=== PATIENT | male | born 1960 | race Caucasian/White ===

== ENCOUNTER 2018-03-08 17:23 | Inpatient (IN) | payer MEDICARE ==
[~2018-03-08] VITALS: Ht 177.8 cm; Wt 81.6 kg
[~2018-03-08 17:23] MED LIST: AMLO5TAB4 PO; ATOR40TA69 PO; Aspirin PO; CARV12.580 PO; CLOP75TA14 PO; FISH1CAP20 PO; LEVO50TA4 PO; LORA0.5T83 PO; LOSA50TA2 PO
[2018-03-08 17:41] LABS: BASOPHILS % (AUTO) 0.6 % (0.0-5.0); EOSINOPHILS % (AUTO) 0.9 % (0.0-8.0); HEMATOCRIT 41.1 % (42-54); LYMPHOCYTES % (AUTO) 27.3 % (21.0-51.0); MEAN CORPUSCULAR HEMOGLOBIN 29.3 pg (27.0-33.0); MEAN CORPUSCULAR VOLUME 86.1 fL (79-99); MONOCYTES % (AUTO) 8.4 % (3.0-13.0); NEUTROPHILS % (AUTO) 62.8 % (40.0-77.0); PLATELET COUNT (AUTO) 216 K/uL (130-400); RED BLOOD CELL COUNT(AUTO) 4.78 MIL/uL (4.50-6.20); RED CELL DISTRIBUTION WIDTH 13.5 % (11.0-15.5)
[2018-03-08 17:58] LABS: INR 0.96 (0.85-1.15); PARTIAL THROMBOPLASTIN TIME 29.5 SEC (26.3-35.5); PROTHROMBIN TIME 10.1 SEC (9.6-11.6)
[2018-03-08 18:04] LABS: CREATININE 1.4 mg/dL (0.5-1.5)
[2018-03-08 18:09] LABS: ALBUMIN 3.5 g/dL (3.5-5.0); BILIRUBIN,TOTAL 0.5 mg/dL (0.2-1.0)
[2018-03-08] MEDS ORDERED: MORPHINE SULFATE 4 MG/1ML SYG IV PRN (21:15)
[2018-03-08] MEDS ORDERED: NITROGLYCERIN 0.4 MG SL TAB SL PRN (21:15)
[2018-03-08] MEDS ORDERED: MORPHINE SULFATE 2 MG/ML 1ML SYG IV PRN (21:15)
[2018-03-08 21:17] LABS: AMPHET/METH SCREEN,URINE NEGATIVE (NEGATIVE); BARBITURATE SCREEN, URINE NEGATIVE (NEGATIVE); BENZODIAZEPINES SCREEN,URINE NEGATIVE (NEGATIVE); CANNABINOID SCREEN,URINE POSITIVE (NEGATIVE); COCAINE SCREEN,URINE NEGATIVE (NEGATIVE); OPIATE SCREEN,URINE NEGATIVE (NEGATIVE); PHENCYCLIDINE SCREEN,URINE NEGATIVE (NEGATIVE)
[2018-03-08 22:45] VITALS: BP 147/74
[2018-03-08] MEDS ORDERED: ACETAMINOPHEN 325 MG TAB PO PRN (22:45)
[2018-03-08] MEDS ORDERED: ONDANSETRON HCL 4 MG/2 ML VIAL IV PRN (22:45)
[2018-03-08 23:46] LABS: CREATINE KINASE, TOTAL 367 U/L (21-232); MYOGLOBIN 82 ng/mL (10-92); TROPONIN I < 0.04 ng/mL (0.00-0.06)
[2018-03-09] MEDS ORDERED: MULT-40 PO (00:44)
[2018-03-09] MEDS ORDERED: LOSA25TA2 PO (00:44)
[2018-03-09] MEDS ORDERED: ALBU2.5V2 IH (00:46)
[2018-03-09] MEDS ORDERED: ASPIRIN 81MG TAB.CHEW ONE (00:48)
[2018-03-09] MEDS: SODIUM CHLORIDE 0.9% 1000ML 1,000 ML IV SCH ×4 (00:51→20:23)
[2018-03-09] MEDS: IPRATROPIUM/ALBUTEROL SULFATE 3 ML SOLUTION IH SCH ×5 (01:46→23:01)
[2018-03-09 04:00] VITALS: BP 116/70
[2018-03-09 04:51] LABS: BASOPHILS % (AUTO) 0.5 % (0.0-5.0); EOSINOPHILS % (AUTO) 1.4 % (0.0-8.0); HEMATOCRIT 38.9 % (42-54); LYMPHOCYTES % (AUTO) 36.7 % (21.0-51.0); MEAN CORPUSCULAR HEMOGLOBIN 29.7 pg (27.0-33.0); MEAN CORPUSCULAR HGB CONC 33.9 g/dL (32.0-36.0); MEAN CORPUSCULAR VOLUME 87.5 fL (79-99); MONOCYTES % (AUTO) 9.2 % (3.0-13.0); NEUTROPHILS % (AUTO) 52.2 % (40.0-77.0); PLATELET COUNT (AUTO) 206 K/uL (130-400); RED BLOOD CELL COUNT(AUTO) 4.44 MIL/uL (4.50-6.20); RED CELL DISTRIBUTION WIDTH 13.6 % (11.0-15.5); WHITE BLOOD COUNT (AUTO) 7.5 K/uL (4.8-10.8)
[2018-03-09 04:58] LABS: HEMOGLOBIN A1C 6.1 % (4.0-6.0)
[2018-03-09 05:09] LABS: ALANINE AMINOTRANSFERASE 30 U/L (12-78); ALBUMIN 3.2 g/dL (3.5-5.0); ASPARTATE AMINOTRANSFERASE 21 U/L (10-37); BILIRUBIN,TOTAL 0.7 mg/dL (0.2-1.0); CARBON DIOXIDE 25 mmol/L (21-32); CHLORIDE 107 mmol/L (101-111); CHOLESTEROL 123 mg/dL (<200); CREATINE KINASE, TOTAL 275 U/L (21-232); CREATININE 1.1 mg/dL (0.5-1.5); GLOMERULAR FILTR. RATE CALC 73 mL/min (>60); GLUCOSE,RANDOM 80 mg/dL (70-105); HDL CHOLESTEROL 53 mg/dL (29-71); LDL DIRECT 62 mg/dL (0-99); MYOGLOBIN 69 ng/mL (10-92); POTASSIUM 3.7 mmol/L (3.5-5.1); SODIUM SERUM 139 mmol/L (136-145); TOTAL PROTEIN, SERUM 6.5 g/dL (6.0-8.3); TRIGLYCERIDES 70 mg/dL (30-200); TROPONIN I < 0.04 ng/mL (0.00-0.06); UREA NITROGEN, BLOOD 15 mg/dL (7-18)
[2018-03-09] MEDS ORDERED: PNEUMOCOCCAL VACCINE POLYVALENT 0.5 ML/VIAL [PPV] ONE (06:08)
[2018-03-09 07:30] VITALS: BP 122/81
[2018-03-09] MEDS: ASPIRIN 81MG TAB.CHEW PO SCH ×2 (07:41→10:59)
[2018-03-09] MEDS: LEVOTHYROXINE 50 MCG TABLET PO SCH (07:42)
[2018-03-09] MEDS ORDERED: LOSARTAN 50 MG TABLET PO SCH (09:00)
[2018-03-09] MEDS ORDERED: AMLODIPINE BESYLATE 5 MG TAB PO SCH (09:00)
[2018-03-09] MEDS ORDERED: PNEUMOCOCCAL VACCINE POLYVALENT 0.5 ML/VIAL [PPV] IM ONE (09:00)
[2018-03-09] MEDS: CLOPIDOGREL BISULFATE 75 MG TAB PO SCH (10:57)
[2018-03-09] MEDS: MULTIVITAMIN TABLET PO SCH (10:57)
[2018-03-09] MEDS: PANTOPRAZOLE SODIUM 40 MG TABLET.DR PO SCH (10:58)
[2018-03-09] MEDS: CARVEDILOL 12.5 MG TABLET PO SCH ×2 (10:59→20:22)
[2018-03-09 11:00] VITALS: BP_SYST 102; BP_SYST 127; BP_DIAS 66; BP_DIAS 83
[2018-03-09] MEDS: ENOXAPARIN SODIUM 30 MG/0.3 ML SQ SCH (11:00)
[2018-03-09] MEDS: LOSARTAN 50 MG TABLET PO SCH (14:29)
[2018-03-09 16:00] VITALS: BP 126/77
[2018-03-09] MEDS: AMLODIPINE BESYLATE 5 MG TAB PO SCH (16:48)
[2018-03-09 19:00] VITALS: BP 116/74
[2018-03-09] MEDS: ATORVASTATIN CALCIUM 40 MG TABLET PO SCH (20:22)
[2018-03-09] MEDS: LORAZEPAM 0.5 MG TABLET PO PRN (20:24)
[2018-03-09 23:00] VITALS: BP 132/72
[2018-03-10 03:00] VITALS: BP 115/65
[2018-03-10 05:11] LABS: BASOPHILS % (AUTO) 0.4 % (0.0-5.0); EOSINOPHILS % (AUTO) 1.2 % (0.0-8.0); HEMATOCRIT 39.5 % (42-54); LYMPHOCYTES % (AUTO) 22.5 % (21.0-51.0); MEAN CORPUSCULAR HEMOGLOBIN 29.4 pg (27.0-33.0); MEAN CORPUSCULAR HGB CONC 33.6 g/dL (32.0-36.0); MEAN CORPUSCULAR VOLUME 87.6 fL (79-99); MONOCYTES % (AUTO) 8.5 % (3.0-13.0); NEUTROPHILS % (AUTO) 67.4 % (40.0-77.0); PLATELET COUNT (AUTO) 179 K/uL (130-400); RED BLOOD CELL COUNT(AUTO) 4.51 MIL/uL (4.50-6.20); RED CELL DISTRIBUTION WIDTH 13.3 % (11.0-15.5); WHITE BLOOD COUNT (AUTO) 8.8 K/uL (4.8-10.8)
[2018-03-10 05:22] LABS: CREATININE 1.1 mg/dL (0.5-1.5); POTASSIUM 3.9 mmol/L (3.5-5.1)
[2018-03-10] MEDS: SODIUM CHLORIDE 0.9% 1000ML 1,000 ML IV SCH (05:41)
[2018-03-10] MEDS: LEVOTHYROXINE 50 MCG TABLET PO SCH (05:41)
[2018-03-10] MEDS: IPRATROPIUM/ALBUTEROL SULFATE 3 ML SOLUTION IH SCH ×4 (06:00→23:07)
[2018-03-10 07:47] VITALS: BP 108/58
[2018-03-10] MEDS ORDERED: REGADENOSON 0.4 MG/5 ML PF SYG IVP SCH (10:00)
[2018-03-10 11:27] VITALS: BP 117/69
[2018-03-10] MEDS: LEVOFLOXACIN 500 MG/D5W 100 ML 100 ML IV SCH (13:00)
[2018-03-10] MEDS ORDERED: LEVOFLOXACIN 500 MG/D5W 100 ML 100 ML ONE (13:13)
[2018-03-10] MEDS: ASPIRIN 81MG TAB.CHEW PO SCH (13:30)
[2018-03-10] MEDS: CARVEDILOL 12.5 MG TABLET PO SCH ×2 (13:31→22:27)
[2018-03-10] MEDS: AMLODIPINE BESYLATE 5 MG TAB PO SCH (13:32)
[2018-03-10] MEDS: PANTOPRAZOLE SODIUM 40 MG TABLET.DR PO SCH (13:32)
[2018-03-10] MEDS: MULTIVITAMIN TABLET PO SCH (13:32)
[2018-03-10] MEDS: CLOPIDOGREL BISULFATE 75 MG TAB PO SCH (15:00)
[2018-03-10] MEDS: LOSARTAN 50 MG TABLET PO SCH (15:01)
[2018-03-10] MEDS: ENOXAPARIN SODIUM 30 MG/0.3 ML SQ SCH (15:03)
[2018-03-10 15:36] VITALS: BP 108/64
[2018-03-10 20:00] VITALS: BP 122/78
[2018-03-10] MEDS: ATORVASTATIN CALCIUM 40 MG TABLET PO SCH (22:26)
[2018-03-10] MEDS: LORAZEPAM 0.5 MG TABLET PO PRN (22:27)
[2018-03-10 23:43] VITALS: BP 113/68
[2018-03-11 04:00] VITALS: BP 104/52
[2018-03-11] MEDS: IPRATROPIUM/ALBUTEROL SULFATE 3 ML SOLUTION IH SCH (05:56)
[2018-03-11] MEDS: LEVOTHYROXINE 50 MCG TABLET PO SCH (06:27)
[2018-03-11] MEDS: SODIUM CHLORIDE 0.9% 1000ML 1,000 ML IV SCH (06:32)
[2018-03-11 07:30] VITALS: BP 133/85
[2018-03-11] MEDS: LEVOFLOXACIN 500 MG/D5W 100 ML 100 ML IV SCH (08:53)
[2018-03-11] MEDS: CLOPIDOGREL BISULFATE 75 MG TAB PO SCH (08:56)
[2018-03-11 08:57] VITALS: BP 133/85
[2018-03-11] MEDS: CARVEDILOL 12.5 MG TABLET PO SCH (08:57)
[2018-03-11] MEDS: MULTIVITAMIN TABLET PO SCH (09:00)
[2018-03-11] MEDS: AMLODIPINE BESYLATE 5 MG TAB PO SCH (09:00)
[2018-03-11] MEDS: LOSARTAN 50 MG TABLET PO SCH (09:00)
[2018-03-11] MEDS: PANTOPRAZOLE SODIUM 40 MG TABLET.DR PO SCH (09:00)
[2018-03-11] MEDS: ENOXAPARIN SODIUM 30 MG/0.3 ML SQ SCH (09:00)
== END 2018-03-11 10:28 | disposition home or self-care (01) | DRG 313 ==
LOC: EDH 17:23 → EDHIP 19:51 → 3AH 21:43
PROVIDERS: ADMIT Internal Medicine; ATTEND Internal Medicine
PROC: 3E0234Z Introduction of Serum, Toxoid and Vaccine into Muscle, Percutaneous Approach (ICD-10-PCS; principal; 2018-03-08)
PROC: 4B02XTZ Measurement of Cardiac Defibrillator, External Approach (ICD-10-PCS; 2018-03-09)
DX: R07.89 Other chest pain (principal); J44.0 Chronic obstructive pulmonary disease with (acute) lower respiratory infection; E03.9 Hypothyroidism, unspecified; I25.5 Ischemic cardiomyopathy; E11.9 Type 2 diabetes mellitus without complications; I10 Essential (primary) hypertension; E78.5 Hyperlipidemia, unspecified; J20.9 Acute bronchitis, unspecified; G47.00 Insomnia, unspecified; I25.10 Atherosclerotic heart disease of native coronary artery without angina pectoris; F12.90 Cannabis use, unspecified, uncomplicated; I25.2 Old myocardial infarction; Z86.79 Personal history of other diseases of the circulatory system; Z87.891 Personal history of nicotine dependence; Z91.19 Patient's noncompliance with other medical treatment and regimen; Z95.5 Presence of coronary angioplasty implant and graft; Z95.810 Presence of automatic (implantable) cardiac defibrillator; Z88.8 Allergy status to other drugs, medicaments and biological substances; Z23 Encounter for immunization
CPT/HCPCS: 36415; 71045; 78452; 80048; 80053; 80061; 80305; 82550; 83036; 83735; 83874; 83880; 84484; 85025; 85610; 85730; 87071; 87205; 90732; 93005; 93017; 93306; 94640; 94664; 96374; A9500; G0009; J1650; J1956; J2405; J2785; J7030

== ENCOUNTER 2018-05-01 10:43 | Emergency (ER) | payer MEDICARE ==
[~2018-05-01 10:43] MED LIST changes: +ALBU2.5V2 IH; -Aspirin PO; -FISH1CAP20 PO; +LOSA25TA2 PO; -LOSA50TA2 PO; +MULT-40 PO
[2018-05-01] MEDS ORDERED: MORPHINE SULFATE 4 MG/1ML SYG ONE (11:14)
[2018-05-01] MEDS ORDERED: KETOROLAC TROMETHAMINE 15MG/ML ONE (11:14)
[2018-05-01 11:31] LABS: BASOPHILS % (AUTO) 0.7 % (0.0-5.0); EOSINOPHILS % (AUTO) 0.7 % (0.0-8.0); HEMATOCRIT 42.6 % (42-54); LYMPHOCYTES % (AUTO) 11.5 % (21.0-51.0); MEAN CORPUSCULAR HEMOGLOBIN 29.4 pg (27.0-33.0); MEAN CORPUSCULAR HGB CONC 33.7 g/dL (32.0-36.0); MEAN CORPUSCULAR VOLUME 87.1 fL (79-99); MONOCYTES % (AUTO) 6.2 % (3.0-13.0); NEUTROPHILS % (AUTO) 80.9 % (40.0-77.0); PLATELET COUNT (AUTO) 268 K/uL (130-400); RED BLOOD CELL COUNT(AUTO) 4.89 MIL/uL (4.50-6.20); WHITE BLOOD COUNT (AUTO) 13.4 K/uL (4.8-10.8)
[2018-05-01 11:39] LABS: CREATININE 1.2 mg/dL (0.5-1.5); POTASSIUM 4.3 mmol/L (3.5-5.1)
[2018-05-01 13:46] LABS: APPEARANCE,URINE Clear (CLEAR); BILIRUBIN,URINE Negative (NEGATIVE); COLOR,URINE Yellow (YELLOW); GLUCOSE, URINE (UA) Negative (NEGATIVE); KETONES,URINE Negative (NEGATIVE); LEUKOCYTE ESTERASE ,URINE Negative (NEGATIVE); NITRATE,URINE Negative (NEGATIVE); OCCULT BLOOD,URINE Negative (NEGATIVE); PH,URINE 7.5 (5.0-8.0); PROTEIN,URINE Negative (NEGATIVE); UROBILINOGEN,URINE 0.2 mg/dL (0.2-1.0)
== END 2018-05-01 14:28 | disposition home or self-care (01) ==
LOC: EDH 10:43
DX: S33.5XXA Sprain of ligaments of lumbar spine, initial encounter (principal); E78.5 Hyperlipidemia, unspecified; I11.0 Hypertensive heart disease with heart failure; I50.9 Heart failure, unspecified; J44.9 Chronic obstructive pulmonary disease, unspecified; Z88.8 Allergy status to other drugs, medicaments and biological substances; X58.XXXA Exposure to other specified factors, initial encounter; Y93.89 Activity, other specified; Y92.89 Other specified places as the place of occurrence of the external cause; Y99.8 Other external cause status
CPT/HCPCS: 36415; 74176; 80048; 81003; 84484; 85025; 93005; 96374; 96375; 99284; J1885; J2270

== ENCOUNTER 2018-05-28 09:35 | Inpatient (IN) | payer MEDICARE | END 2018-05-30 15:06 | disposition home or self-care (01) | LOC: EDH 09:35 → EDHIP 12:04 → 2DH 05-29 22:52 → 2BH 16:54 | DX: I11.0 Hypertensive heart disease with heart failure (principal); I16.1 Hypertensive emergency; I25.10 Atherosclerotic heart disease of native coronary artery without angina pectoris; I49.3 Ventricular premature depolarization; I25.110 Atherosclerotic heart disease of native coronary artery with unstable angina pectoris; J44.9 Chronic obstructive pulmonary disease, unspecified; I25.5 Ischemic cardiomyopathy ==